=== PATIENT | male | born 1940 | race Caucasian/White ===

== ENCOUNTER 2017-06-18 05:54 | Day surgery (SDC) | payer MEDICARE ==
--- NOTE | 2017-06-08 10:19 | HP ---
HISTORY AND PHYSICAL: DATE OF SURGERY: 06/18/17 DATE OF HISTORY AND PHYSICAL: 06/01/17 SURGEON: Dr. Selvin Ellison.* (DICTATED BY SESAR MCNAMARA) PROCEDURE: Left arthroscopy, partial meniscectomy, medial and possible removal of loose bodies. CHIEF COMPLAINT: Left knee pain. HISTORY OF PRESENT ILLNESS: The patient is a 77-year-old male who works a desk job as an electrician office, who presents for followup of left knee pain, possible medial meniscal tear, status post MRI. As I review, he injured himself at the beginning of March, nearly 3 months ago, while working in a car, felt sudden pain and pulling at his left knee, which resulted in some limping. He does have a prior history of left knee surgery in either 1995 or 1996, which resolved his pain at that time. He has tried cortisone injection, which improved his pain for about 3 days. He has also tried physical therapy and home exercise program. He has been doing this for the last 2 months. He has also been taking Aleve. He denies any history of problems with anesthesia. He also denies a history of himself or his family with DVT or PE. He does have diabetes and he is followed by Dr. Butcher and believes his A1c level is very low on his last check. PAST MEDICAL HISTORY: 1. AFib. 2. Type 2 diabetes. 3. Dyslipidemia. 4. Nonproliferative diabetic retinopathy. 5. Microscopic hematuria. 6. Macular degeneration. PAST SURGICAL HISTORY: 1. Left knee scope with a tendon repair. 2. Left ankle open reduction internal fixation. 3. Vein stripping. MEDICATIONS: 1. Glimepiride 1 mg daily. 2. Eliquis 5 mg twice daily. 3. Metoprolol 25 mg b.i.d. 4. Simvastatin 40 mg at bedtime. 5. Metformin 1000 mg b.i.d. 6. Aspirin 81 mg. 7. Tamsulosin 0.4 mg daily. 8. Aleve 220 mg 1 to 2 tablets twice daily as needed for pain. ALLERGIES: PERCOCET and CHANTIX. FAMILY MEDICAL HISTORY: Heart disease in father and brother. Rheumatic fever in brother. Diabetes in father and 2 brothers. SOCIAL HISTORY: He is a current half to 1 pack per day smoker. He denies any alcohol or drug use. REVIEW OF SYSTEMS: He endorses his present complaint as outlined in the HPI as well as current diagnosis of diabetes. He is able to walk a flight of stairs or 3 blocks without shortness of breath. He denies any history of DVT or PE. PHYSICAL EXAMINATION GENERAL: Well nourished, well developed, in no acute distress. Alert and oriented x3. No gross neurological deficits. He was ambulating without a limp. Bilateral upper and lower extremities muscle bulk and tone symmetrical bilaterally. VITAL SIGNS: Height 70 inches, weight 180 pounds. Pulse 76, blood pressure 110 /70. Pain level is 2. BMI 25.8. HEENT: Normocephalic, atraumatic. Pupils equally round and reactive to light. Extraocular movements intact. NECK: Supple. No palpable cervical lymph nodes. Thyroid is smooth and nontender. PULMONARY: Lungs clear to auscultation bilaterally. No wheezes, rales, or rhonchi. CARDIAC: Regular rate and rhythm. No murmurs, rubs, or gallops. No pedal edema. ABDOMEN: Soft and nontender. MUSCULOSKELETAL: Left knee exam shows no soft tissue swelling or bruising. The skin is intact. No joint effusion. Passive range of motion is 0 to 140 degrees of flexion. Posterior knee pain with flexion. Positive medial joint line tenderness. Positive posterior pain with Rica's testing. No pain or increased laxity with ligamentous stress testing. Mild patellofemoral compartment tenderness to palpation. Neurovascularly intact distally. DIAGNOSTIC STUDIES: Four x-ray views of the left knee obtained on 03/30/17 were again reviewed in clinic, which show mild joint space narrowing tri- compartmentally. No osteophytes or bone spurs except a tractional spur on the proximal expect of the superficial patella. MRI from 05/10/17 was reviewed and again shows a horizontal type tear of the body and posterior horn of the medial meniscus, question about a displaced fragment of the meniscus versus a loose body visible on both the coronal and sagittal sites of the MRI. No significant loss of articular cartilage in the medial or lateral compartment appreciated. IMPRESSION: 1. Left knee medial meniscal tear with possible displaced meniscal flap. 2. Left knee pain. PLAN: José Antonio is scheduled to undergo left knee arthroscopy; partial meniscectomy , medial; possible removal of loose body with Dr. Ellison on 06/18/17. He will return to clinic 10 to 14 days postop for followup and suture removal. He will have prescription for pain medication prescribed on day of surgery and I-STOP will be checked on that day. All questions were answered today. SESAR MCNAMARA [id number]/[facility] #: [id number] JOSIAH
[~2017-06-18 05:54] MED LIST: Buffered Lidocaine 0.9% SYRIN* 5 ML/SYR SYRINGE INTRADERM ONE
[2017-06-18] MEDS ORDERED: Metoclopramide TAB* 10 MG PO ONE (06:00)
[2017-06-18] MEDS ORDERED: Famotidine TAB* 20 MG PO ONE (06:00)
[2017-06-18] MEDS ORDERED: ceFAZolin 2 GM PREMIX (*) 2 GM/50 ML BAG IVPB ONE (06:06)
[2017-06-18] MEDS ORDERED: Famotidine TAB* 20 MG ONE (06:06)
[2017-06-18] MEDS ORDERED: Metoclopramide TAB* 10 MG ONE (06:06)
[2017-06-18] MEDS ORDERED: EPINEPHRINE 1 MG/ML 1 ML VIAL ONE (06:59)
[2017-06-18] MEDS ORDERED: Bupivacaine 0.5%* 50 ML VIAL ONE (06:59)
[2017-06-18] MEDS ORDERED: fentaNYL* 50 MCG/ML 2 ML VIAL (100 MCG VIAL) ONE ×2 (07:03→07:57)
[2017-06-18] MEDS ORDERED: Ondansetron INJ* 2 MG/ML VIAL ONE (07:03)
[2017-06-18] MEDS ORDERED: Dexamethasone IV* 4 MG/ML 1 ML (4 MG) ONE (07:03)
[2017-06-18] MEDS ORDERED: Lidocaine 2% PF * 5 ML VIAL ONE (07:03)
[2017-06-18] MEDS ORDERED: Propofol* 10 MG/ML 20 ML BTL IV PUSH ONE (07:03)
[2017-06-18] MEDS ORDERED: Ketorolac INJ* 30 MG/ML 1 ML VIAL ONE (07:03)
[2017-06-18] MEDS ORDERED: Midazolam* 1 MG/ML 5 ML VIAL (5 MG) ONE (07:03)
[2017-06-18] MEDS ORDERED: EPHEDrine (Pressors)* 50 MG/ML VIAL ONE (07:40)
[2017-06-18] MEDS ORDERED: DiMENhydriNATE IV* 50 MG/ML VIAL ONE (07:46)
[2017-06-18] MEDS ORDERED: Naloxone* 0.4 MG/ML 1 ML VIAL IV PRN (08:00)
[2017-06-18] MEDS ORDERED: Ondansetron ODT TAB* 4 MG PO PRN (08:00)
[2017-06-18] MEDS ORDERED: oxyCODONE/Acetamin 5/325 MG* TAB PO PRN (08:00)
[2017-06-18] MEDS ORDERED: fentaNYL* 50 MCG/ML 2 ML VIAL (100 MCG VIAL) IV PRN (08:00)
[2017-06-18] MEDS ORDERED: methylPREDNISolone ACETATE 40* 40 MG/ML 1 ML VIAL ONE ×3 (08:08→08:38)
[2017-06-18 09:32] VITALS: BP 117/75
--- NOTE | 2017-06-20 22:52 | OP ---
DATE OF OPERATION: 06/18/17 - [facility] DATE OF : 44 SURGEON: Selvin Ellison MD BRICK OFFBEARER: SESAR Samaniego. A physician medical staff assistant was required for the length of procedure for positioning, assistance with instrumentation, and closure. ANESTHESIOLOGIST: Dr. Edgar Karimi. ANESTHESIA: General. PRE-OP DIAGNOSES: 1. Left knee medial meniscal tear with possible displaced meniscal flap. 2. Left knee pain. POST-OP DIAGNOSES: 1. Left knee medial meniscal tear. 2. No clear significantly displaced meniscal flap or loose body, left knee. 3. Mild left knee osteoarthritis. OPERATIVE PROCEDURE: 1. Left knee arthroscopic partial medial meniscectomy. 2. Left knee arthroscopic anterior synovectomy. IV FLUIDS: 1200 cc crystalloid. ANTIBIOTICS: Ancef 2 g IV. SKIN TO SKIN TIME: 17 minutes. TOURNIQUET TIME: At 300 mmHg 19 minutes. SPECIMENS: None. IMPLANTS: None. COMPLICATIONS: None. EBL: Minimal. INDICATIONS FOR PROCEDURE: The patient is a 77-year-old man, who has had pain since the beginning of March 2017. The patient developed pain with a specific injury. The patient responded insufficiently to nonoperative management as detailed in my history and physical and he opted for surgery. The patient's MRI of the left knee demonstrated a horizontal type tear in the body and posterior horn of the medial meniscus. There was a question of a displaced fragment of meniscus versus a loose body visible on both the coronal and sagittal slices of the MRI, into the intercondylar notch. No significant loss of articular cartilage in the medial and lateral compartments appreciated. Discussed risks and potential complications of surgery with the patient including bleeding, infection, nerve or blood vessel injury, knee pain, stiffness, osteoarthritis. DESCRIPTION OF PROCEDURE: In preoperative holding, the patient signed a written consent. Operative extremity was marked in preoperative holding. Hair was shaved off the knee. The patient was taken back to the operating room and placed supine on the operating table. LMA and general anesthesia was performed. Tourniquet was placed around the left proximal thigh. Distal thigh was placed in a circumferential thigh mayo. The foot of the table was dropped and the table was elevated. The left lower extremity was prepped with ChloraPrep and then draped. Surgical time-out was performed. An Esmarch was applied and then tourniquet was elevated to 300 mmHg. Established an anterolateral knee arthroscopy portal using standard technique, commenced my diagnostic arthroscopy. The patient had some thinning of the patellofemoral compartment articular cartilage, but no clear focal defects. He had some synovitis prolapsing into that compartment. I next moved to the medial compartment. The patient had some clear tearing of the body and posterior horn of the medial meniscus. He also had some clear articular cartilage lesions, some pot holing of the more central aspect of the medial femoral condyle. Anteromedial knee arthroscopy portal was established using standard technique. I probed the medial femoral condyle. There was not significant instability of any of the articular cartilage. I performed a light chondroplasty of that area , but there was no unstable cartilage present. I next directed my attention to the medial meniscal tear. There was no flap displaced from it into the intercondylar notch. I looked through the intercondylar notch after having debrided some anterior synovitis anterior to it. I probed throughout the intercondylar notch between ACL and PCL and found no loose bodies. I debrided the medial meniscus back to a stable rim in the body and posterior horn. Probed for any flaps above or below the meniscus, none found. Mostly worked through the anteromedial portal. An anteromedial portal had been established under direct visualization. I continued my diagnostic arthroscopy into the lateral compartment where there was no significant articular cartilage wear nor was there any discrete meniscus tear. I then removed all instruments and fluid from the knee. We closed the skin incisions with [id number] stitches using nylon 4-0 suture. Some local anesthesia was injected into the subcutaneous tissues about the skin incisions. Approximately 10 cc of 0.5% Marcaine without epinephrine. Xeroform, 4x4's, sterile Webril, ABD, Jeffery bandage from foot to proximal thigh. A tourniquet had been deflated. Icing unit was placed on the left knee. DISPOSITION: Per his request, the patient was given tramadol rather than Percocet for postoperative pain control. Because he is on Eliquis, we did not prescribe aspirin for DVT prophylaxis. The patient will follow up in clinic 10 to 14 days postoperatively. He will wean off of his crutches. Wound care instructions per my written instructions. The patient will start physical therapy as soon as he can get an appointment. [id number]/[facility] #: [id number] [facility]ITAL[facility]ash[facility]
== END 2017-06-18 10:00 | disposition home or self-care (01) ==
LOC: OR 05:54
PROVIDERS: ATTEND Orthopaedic Surgery
DX: S83.242A Other tear of medial meniscus, current injury, left knee, initial encounter (principal); M17.12 Unilateral primary osteoarthritis, left knee; Z79.84 Long term (current) use of oral hypoglycemic drugs; E11.319 Type 2 diabetes mellitus with unspecified diabetic retinopathy without macular edema; I48.91 Unspecified atrial fibrillation; Z79.01 Long term (current) use of anticoagulants; E78.5 Hyperlipidemia, unspecified; R31.29 Other microscopic hematuria; F17.210 Nicotine dependence, cigarettes, uncomplicated; X50.0XXA Overexertion from strenuous movement or load, initial encounter; Y93.9 Activity, unspecified; Y92.9 Unspecified place or not applicable
CPT/HCPCS: A9270-GY; J0690; J1030; J1100; J1240; J1885; J2250; J2405; J2704; J3010

== ENCOUNTER 2024-02-16 10:27 | Inpatient (IN) ==
[2024-02-16] MEDS: Morphine 4 MG/ML VIAL (1 ml) IV ONE ×2 (11:39→12:29)
[2024-02-16 11:48] LABS: ABS Basophils 0.1 10^3/uL (0.0-0.1); ABS Lymphocytes 0.8 10^3/uL (1.0-4.8); ABS Monocytes 0.5 10^3/uL (0.0-1.1); ABS Neutrophils 8.7 10^3/uL (1.5-7.6); ABS Nucleated RBC 0.01 10^3/ul; Eosinophil % 0.4 %; Hematocrit 43.4 % (38-53); Hemoglobin 15.1 g/dL (13.2-16.3); Lymphocyte % 8.1 %; Mean Corpuscular Hemoglobin 31.5 pg (27-33); Mean Corpuscular Hgb Conc 34.7 g/dL (31-36); Mean Corpuscular Volume 90.6 fL (80-97); Mean Platelet Volume 8.2 fL (7.5-11.2); Nucleated Red Blood Cells % 0.1 %/100WBC (0.0-0.8); Platelet Count 238 10^3/uL (150-450); Red Blood Count 4.79 10^6/uL (4.06-5.63); Red Cell Distribution Width 13.6 % (12-17); White Blood Count 10.2 10^3/uL (3.6-10.2)
[2024-02-16 11:57] LABS: Activated Partial Thrombo Time 30.5 seconds (26.0-38.0); INR 1.08 (0.85-1.14)
[2024-02-16 12:10] LABS: Albumin 4.5 g/dL (3.5-5.7); Albumin/Globulin Ratio 1.7 (1-3); Calcium 9.5 mg/dL (8.6-10.3); Creatinine, Serum 0.98 mg/dL (0.67-1.17); Globulin 2.7 g/dL (2-4); Potassium 4.4 mmol/L (3.5-5.0); Total Protein 7.2 g/dL (6.4-8.9); eGFR CKD-EPI 77.5 (>60)
[2024-02-16] MEDS: Acetaminophen IV 1 GM/100ML 1,000 MG/100 ML BAG IV ONE (12:29)
[2024-02-16] MEDS ORDERED: Dextrose 50% Syringe 50 ml 25 GM/50 ML SYRINGE IV PUSH PRN (14:32)
[2024-02-16] MEDS ORDERED: Heparin 5000 UNITS/ML 1 mL VIAL IV SCH (15:00)
[2024-02-16] MEDS: Heparin DRIP 25,000 UNITS BAG 25,000 UNITS/250 ML BAG IV SCH (15:50)
[2024-02-16] MEDS: Enoxaparin 80 MG/0.8 ML SYR SUBCUT SCH (17:48)
[2024-02-16] MEDS: Ondansetron ODT 4 mg TAB 4 MG TAB SL PRN (18:44)
[2024-02-16] MEDS ORDERED: Acetaminophen IV 1 GM/100ML 1,000 MG/100 ML BAG IV PRN (19:24)
[2024-02-16] MEDS ORDERED: Naloxone Nasal Spray 4 MG/0.1 ML NASAL.SPR INTRANASAL PRN (19:25)
[2024-02-17] MEDS: Ondansetron 4 mg VIAL 2 MG/ML 2 ml VIAL IV PRN (02:04)
[2024-02-17] MEDS: Metoprolol Tartrate 5 mg VIAL 5 ml VIAL (1 mg/ml) IV ONE (02:39)
[2024-02-17 03:14] LABS: ABS Basophils 0.1 10^3/uL (0.0-0.1); ABS Eosinophils 0.1 10^3/uL (0.0-0.5); ABS Lymphocytes 0.8 10^3/uL (1.0-4.8); ABS Monocytes 1.1 10^3/uL (0.0-1.1); ABS Neutrophils 12.5 10^3/uL (1.5-7.6); Eosinophil % 0.6 %; Hematocrit 39.8 % (38-53); Hemoglobin 13.9 g/dL (13.2-16.3); Lymphocyte % 5.4 %; Mean Corpuscular Hemoglobin 31.3 pg (27-33); Mean Corpuscular Hgb Conc 34.9 g/dL (31-36); Mean Corpuscular Volume 89.8 fL (80-97); Mean Platelet Volume 8.8 fL (7.5-11.2); Platelet Count 276 10^3/uL (150-450); Red Blood Count 4.43 10^6/uL (4.06-5.63); Red Cell Distribution Width 13.9 % (12-17); White Blood Count 14.5 10^3/uL (3.6-10.2)
[2024-02-17 03:47] LABS: Calcium 9.1 mg/dL (8.6-10.3); Creatinine, Serum 1.36 mg/dL (0.67-1.17); Magnesium 1.8 mg/dL (1.9-2.7); Potassium 4.5 mmol/L (3.5-5.0); eGFR CKD-EPI 52.3 (>60)
[2024-02-17 04:11] LABS: ABS Eosinophils 0.1 10^3/uL (0.0-0.5); ABS Lymphocytes 0.9 10^3/uL (1.0-4.8); ABS Monocytes 1.2 10^3/uL (0.0-1.1); ABS Neutrophils 14.4 10^3/uL (1.5-7.6); Eosinophil % 0.4 %; Hematocrit 39.3 % (38-53); Hemoglobin 13.5 g/dL (13.2-16.3); Lymphocyte % 5.2 %; Mean Corpuscular Hemoglobin 31.1 pg (27-33); Mean Corpuscular Hgb Conc 34.2 g/dL (31-36); Mean Corpuscular Volume 90.8 fL (80-97); Mean Platelet Volume 8.5 fL (7.5-11.2); Platelet Count 311 10^3/uL (150-450); Red Blood Count 4.33 10^6/uL (4.06-5.63); Red Cell Distribution Width 13.8 % (12-17); White Blood Count 16.6 10^3/uL (3.6-10.2)
[2024-02-17 04:13] LABS: Urine Appearance Turbid; Urine Bilirubin Negative (Negative); Urine Blood 3+ (Negative); Urine Color Yellow; Urine Glucose Negative (Negative); Urine Ketones Trace (Negative); Urine Nitrite Negative (Negative); Urine Protein 1+ (>=30 mg/dL) (Negative); Urine Urobilinogen 1+ (Negative); Urine pH 5.5 (5.0-8.0)
[2024-02-17 04:57] LABS: Urine Bacteria Absent /HPF (Absent); Urine Red Blood Cell 3+(>10/hpf) /HPF (0-Trace); Urine White Blood Cell 2+(11-20/hpf) /HPF (0-Trace)
[2024-02-17] MEDS: Digoxin IV 0.5 MG/2 ML AMP (0.25 MG/ML) IV SLOW PU ONE (05:44)
[2024-02-17] MEDS: Magnesium Sulfate 2 gm BAG 2 GM/50 ML BAG IVPB ONE (05:52)
[2024-02-17] MEDS: Lactated Ringers 1000 ml BAG 1,000 ML IV ONE ×2 (05:56→05:57)
[2024-02-17] MEDS: Lactated Ringers 1000 ml BAG 1,000 ML IV SCH (11:35)
[2024-02-17] MEDS: Sulfur Hexaflouride MICROSPHR 25 MG VIAL IV PRN (14:00)
[2024-02-17] MEDS ORDERED: Propofol 10 MG/ML 20 ML BTL ONE ×2 (16:01→18:15)
[2024-02-17] MEDS ORDERED: Lidocaine 2% PF 5 ML VIAL ONE ×2 (16:01→18:15)
[2024-02-17] MEDS ORDERED: fentaNYL 100 mcg/2 ml 50 MCG/ML VIAL ONE ×2 (16:01→18:20)
[2024-02-17] MEDS ORDERED: Ondansetron 4 mg VIAL 2 MG/ML 2 ml VIAL ONE (16:01)
[2024-02-17] MEDS ORDERED: Dexamethasone IV 4 MG/ML VIAL 1 ml VIAL ONE (16:01)
[2024-02-17] MEDS ORDERED: Rocuronium 50 mg VIAL 10 mg/ml 5 ml VIAL (50 mg) ONE ×2 (16:07→18:18)
[2024-02-17 17:58] LABS: Calcium 8.7 mg/dL (8.6-10.3); Creatinine, Serum 1.27 mg/dL (0.67-1.17); Magnesium 2.2 mg/dL (1.9-2.7); Phosphorus 4.1 mg/dL (2.5-5.0); Potassium 4.2 mmol/L (3.5-5.0); eGFR CKD-EPI 56.8 (>60)
[2024-02-17] MEDS ORDERED: Lidocaine 1% w EPI 1:200,000 SDV 30 ML VIAL ONE (18:12)
[2024-02-17] MEDS ORDERED: ceFAZolin 2 GM PREMIX 0 GM/0 ML BAG ONE (18:14)
[2024-02-18 06:46] LABS: Hematocrit 33.2 % (38-53); Hemoglobin 11.7 g/dL (13.2-16.3); Mean Corpuscular Hemoglobin 31.9 pg (27-33); Mean Corpuscular Hgb Conc 35.3 g/dL (31-36); Mean Corpuscular Volume 90.4 fL (80-97); Mean Platelet Volume 8.3 fL (7.5-11.2); Platelet Count 139 10^3/uL (150-450); Red Blood Count 3.67 10^6/uL (4.06-5.63); Red Cell Distribution Width 13.4 % (12-17); White Blood Count 6.8 10^3/uL (3.6-10.2)
[2024-02-18 07:07] LABS: Calcium 8.4 mg/dL (8.6-10.3); Creatinine, Serum 0.94 mg/dL (0.67-1.17); Magnesium 2.1 mg/dL (1.9-2.7); Potassium 4.1 mmol/L (3.5-5.0); eGFR CKD-EPI 81.4 (>60)
[2024-02-18 08:17] LABS: TSH Ultra Thyroid Stim Horm 1.03 mcIU/mL (0.34-5.60)
[2024-02-18] MEDS ORDERED: Amiodarone 150 mg IVPREMIX 150 MG/100 ML BAG IV ONE (10:08)
[2024-02-18] MEDS: Amiodarone 150 mg IVPREMIX 150 MG/100 ML BAG IV ONE (10:34)
[2024-02-18] MEDS ORDERED: ceFAZolin 2 GM PREMIX 0 GM/0 ML BAG ONE (15:31)
[2024-02-18] MEDS ORDERED: Lidocaine 1% w EPI 1:200,000 SDV 30 ML VIAL ONE (16:10)
[2024-02-18] MEDS ORDERED: Lidocaine 2% PF 5 ML VIAL ONE (17:14)
[2024-02-18] MEDS ORDERED: Propofol 10 MG/ML 20 ML BTL ONE (17:14)
[2024-02-18] MEDS ORDERED: Midazolam 2 mg/2 ml VIAL 1 mg/ml 2 ml VIAL (2 mg) ONE (17:14)
[2024-02-18] MEDS ORDERED: Ondansetron 4 mg VIAL 2 MG/ML 2 ml VIAL ONE (17:14)
[2024-02-18] MEDS ORDERED: fentaNYL 100 mcg/2 ml 50 MCG/ML VIAL ONE ×2 (17:14→18:38)
[2024-02-18] MEDS ORDERED: Dexamethasone IV 4 MG/ML VIAL 1 ml VIAL ONE (17:14)
[2024-02-18] MEDS ORDERED: Naloxone 0.4 mg VIAL 0.4 mg/ml 1 ml VIAL IV PRN (18:15)
[2024-02-18] MEDS ORDERED: Ondansetron 4 mg VIAL 2 MG/ML 2 ml VIAL IV PRN (18:15)
[2024-02-18] MEDS ORDERED: HYDROmorphone 1 MG/1 ML SYRINGE IV PRN (18:15)
[2024-02-18] MEDS: fentaNYL 100 mcg/2 ml 50 MCG/ML VIAL IV PRN (18:39)
[2024-02-18] MEDS: Amiodarone 400 mg TAB PO SCH (22:07)
[2024-02-19] MEDS: ceFAZolin 1 GM ADVAN 1 GM in NS 0.9% 50 ML 50 ML IVPB SCH (01:18)
[2024-02-19 06:07] LABS: ABS Lymphocytes 0.4 10^3/uL (1.0-4.8); ABS Monocytes 0.5 10^3/uL (0.0-1.1); ABS Neutrophils 5.2 10^3/uL (1.5-7.6); Eosinophil % 0.5 %; Hematocrit 34.1 % (38-53); Hemoglobin 10.9 g/dL (13.2-16.3); Lymphocyte % 7.1 %; Mean Corpuscular Hemoglobin 31.3 pg (27-33); Mean Corpuscular Hgb Conc 31.8 g/dL (31-36); Mean Corpuscular Volume 98.4 fL (80-97); Mean Platelet Volume 8.7 fL (7.5-11.2); Nucleated Red Blood Cells % 0.1 %/100WBC (0.0-0.8); Platelet Count 136 10^3/uL (150-450); Red Blood Count 3.47 10^6/uL (4.06-5.63); White Blood Count 6.2 10^3/uL (3.6-10.2)
[2024-02-19 06:33] LABS: Albumin 3.5 g/dL (3.5-5.7); Albumin/Globulin Ratio 1.6 (1-3); Calcium 8.2 mg/dL (8.6-10.3); Creatinine, Serum 0.87 mg/dL (0.67-1.17); Globulin 2.2 g/dL (2-4); Potassium 4.4 mmol/L (3.5-5.0); Total Bilirubin 1.1 mg/dL (0.2-1.0); Total Protein 5.7 g/dL (6.4-8.9); eGFR CKD-EPI 86.7 (>60)
[2024-02-19] MEDS: HYDROcodone/ACETAMIN 5/325 mg TAB PO PRN (10:55)
[2024-02-19] MEDS: Metoclopramide 5 MG/ML VIAL (10 mg) IV SLOW PU ONE (14:31)
[2024-02-20] MEDS ORDERED: Polyethylene Glycol 3350 17 GM PACKET PO PRN (09:07)
[2024-02-20] MEDS ORDERED: Magnesium Hydroxide LIQ 30 ML UDC PO PRN (09:07)
[2024-02-20] MEDS ORDERED: Senna TAB 8.6 mg TAB PO PRN (09:07)
[2024-02-20] MEDS: Senna TAB 8.6 mg TAB PO PRN (09:24)
[2024-02-20] MEDS: Magnesium Hydroxide LIQ 30 ML UDC PO SCH (09:33)
[2024-02-20 13:09] LABS: ABS Basophils 0.1 10^3/uL (0.0-0.1); ABS Eosinophils 0.2 10^3/uL (0.0-0.5); ABS Lymphocytes 0.5 10^3/uL (1.0-4.8); ABS Monocytes 0.5 10^3/uL (0.0-1.1); ABS Neutrophils 5.4 10^3/uL (1.5-7.6); Eosinophil % 3.5 %; Hematocrit 31.8 % (38-53); Hemoglobin 11.2 g/dL (13.2-16.3); Lymphocyte % 7.8 %; Mean Corpuscular Hgb Conc 35.1 g/dL (31-36); Mean Platelet Volume 8.2 fL (7.5-11.2); Platelet Count 187 10^3/uL (150-450); Red Blood Count 3.49 10^6/uL (4.06-5.63); Red Cell Distribution Width 13.4 % (12-17); White Blood Count 6.7 10^3/uL (3.6-10.2)
[2024-02-20 13:52] LABS: Calcium 8.6 mg/dL (8.6-10.3); Creatinine, Serum 0.9 mg/dL (0.67-1.17); Magnesium 1.9 mg/dL (1.9-2.7); Potassium 3.9 mmol/L (3.5-5.0); eGFR CKD-EPI 85.8 (>60)
[2024-02-20] MEDS ORDERED: Morphine 2 MG/ML SYRINGE IV PRN (15:56)
[2024-02-20] MEDS: Potassium Chlor 20 meq TAB.ER PO ONE (17:06)
[2024-02-20] MEDS: Magnesium Sulfate IV 1GM/100ML 1 GM/100 ML BAG IV ONE (17:10)
[2024-02-20] MEDS ORDERED: Metoprolol Tartrate 5 mg VIAL 5 ml VIAL (1 mg/ml) IV PRN (21:00)
[2024-02-21] MEDS: Amiodarone 400 mg TAB PO SCH (09:57)
[2024-02-23 10:16] VITALS: BP 133/69
== END 2024-02-23 11:40 | disposition home health service (06) | DRG 308 ==
LOC: ED 10:27 → EDHOLD 10:27 → OBSVTOIN 14:21 → SSU 15:52 → MEDTELE 02-17 05:24 → SSU 02-19 14:15
PROVIDERS: ADMIT Student in an Organized Health Care Education/Training Program; ATTEND Hospitalist